=== PATIENT | male | born 1945 | race Caucasian/White ===

== ENCOUNTER 2018-11-05 15:20 | Outpatient (CLI) | payer MEDICARE ==
--- NOTE | 2018-11-05 16:08 | CT ---
EXAM: CT chest without contrast per low-dose cancer screening protocol HISTORY: History of smoking and nicotine dependence COMPARISON: None TECHNIQUE: Multiple contiguous axial images were obtained in a CT of the chest without contrast per l ow-dose cancer screening protocol. Sagittal and coronal reformats were performed. FINDINGS: Pulmonary nodules: Emphysematous changes are seen in the lungs. No suspicious pulmonary nodules are s een. No focal infiltrates are seen. Pleural space: No pneumothorax or pleural effusion are seen. Heart: The heart is normal in size. Calcifications in the coronary arteries and aorta. Mediastinum: No hilar or mediastinal lymphadenopathy appreciated on this limited noncontrast examinat ion. Bones: Degenerative changes are seen in the spine.. Visualized subdiaphragmatic structures: Hypodensities in the bilateral kidneys likely represent cysts .. IMPRESSION: Lung RADS category 1-negative.
== END 2018-11-05 15:21 | disposition home or self-care (01) ==
LOC: CT 15:20
PROVIDERS: ATTEND Internal Medicine
DX: Z12.2 Encounter for screening for malignant neoplasm of respiratory organs (principal); F17.210 Nicotine dependence, cigarettes, uncomplicated
CPT/HCPCS: G0297

== ENCOUNTER 2019-12-29 14:13 | Outpatient (CLI) | payer MEDICARE ==
--- NOTE | 2019-12-29 15:11 | ULT ---
CAROTID DOPPLER: 12/29/19 Ultrasound Doppler study is performed on the extracranial carotid arteries. INDICATIONS: Carotid bruit. Hypercholesterolemia. FINDINGS: Ultrasound images show intimal thickening and moderate echogenic plaque bilaterally. Velocity recordings are within normal range bilaterally. Right ICA velocities recorded up to 110 cm/s systolic. The left ICA velocities recorded at up to 112 cm/s systolic. These readings do not indicat e hemodynamically significant stenosis. Vertebral arteries show antegrade flow. IMPRESSION: 1. Intimal thickening and echogenic plaque seen in both extracranial systems. 2. No evidence of hemodynamically significant stenosis identified by velocity study. POS: [facility]
== END 2019-12-29 14:14 | disposition home or self-care (01) ==
LOC: BICULT 14:13 → ULT 14:14
PROVIDERS: ATTEND Internal Medicine
DX: R09.89 Other specified symptoms and signs involving the circulatory and respiratory systems (principal); I67.2 Cerebral atherosclerosis
CPT/HCPCS: 93880

== ENCOUNTER 2020-01-18 14:26 | Outpatient (CLI) | payer MEDICARE ==
--- NOTE | 2020-01-18 15:29 | CT ---
LOW DOSE CT LUNG SCAN: DATE: 01/18/2020 HISTORY: History of smoking and nicotine dependence. COMPARISON: 11/05/2018 exam. FINDINGS: There are radiographic changes of centrilobular emphysema. No evidence of any honeycombing. Some very mild bronchiectatic changes present. There is some linear scarring seen in the lung bases. No infiltrative process or pulmonary nodules ar e identified. Thoracic aorta is normal in caliber. Coronary calcifications are noted. Tiny amount of pericardial fl uid incidentally seen. Visualized liver parenchyma shows no focal findings. Hypodensities involving the kidneys are most lik alex cysts. They appear stable. IMPRESSION: 1. Lung-RADS Category 1 - negative. Annual follow-up recommended. 2. Lung-RADS Category S - presence of emphysema and coronary calcifications. POS: [facility]
== END 2020-01-18 14:27 | disposition home or self-care (01) ==
LOC: BICCT 14:26
PROVIDERS: ATTEND Family Medicine
DX: Z12.2 Encounter for screening for malignant neoplasm of respiratory organs (principal); F17.210 Nicotine dependence, cigarettes, uncomplicated; J43.9 Emphysema, unspecified; I25.10 Atherosclerotic heart disease of native coronary artery without angina pectoris
CPT/HCPCS: G0297